=== PATIENT | male | born 1980 | race Two or more races ===

== ENCOUNTER → 2016-10-26 | Outpatient (CLI) | payer OTHER ==
[2016-10-26 12:45] LABS: CHLORIDE,CL 106 mmol/L (98-110); SODIUM,NA 141 mmol/L (136-146)
== END ==
LOC: MW.LAB 12:09 → MW.CHFP 12:09
PROVIDERS: ATTEND Student in an Organized Health Care Education/Training Program
DX: B35.1 Tinea unguium (principal)
CPT/HCPCS: 36415; 80053

== ENCOUNTER 2020-06-10 13:34 | Emergency (ER) | payer BC ==
[2020-06-10] MEDS ORDERED: Sodium Chloride 0.9% 2.5 ML Syringe FLUSH PRN (13:49)
[2020-06-10] MEDS ORDERED: Sodium Chloride 0.9% 10 ML Syringe FLUSH PRN (13:49)
--- NOTE | 2020-06-10 14:01 | EDM.PDOC ---
ED HPI GENERAL MEDICAL PROBLEM - General Chief Complaint: Chest Pain Stated Complaint: CHEST PAIN Time Seen by Provider: 06/10/20 13:38 - History of Present Illness INITIAL COMMENTS - FREE TEXT/NARRATIVE: 40-year-old male with no past medical history presenting with now improved left- sided chest pain. Patient reports that he initially experienced the chest pain yesterday he bent down to pick something up and had 2 very quick stabs of left- sided chest pain went away immediately and there were no associated symptoms. He remained asymptomatic until earlier today when he developed a constant nonradiating left chest ache that at its worst was 7 out of 10 and is currently 1 out of 10. His breathing did change during this but he had no shortness of breath no lightheadedness or dizziness no nausea no vomiting no abdominal pain. He has had no recent travel no lower extremity pain or swelling. He is a non- smoker he used to drink relatively heavily 1-2 times a month but gave up alcohol a couple weeks ago. No illicit drugs. No family history of coronary artery disease no family history of diabetes. Over the course of the day today no clear exacerbating or alleviating factors radiation or other associated symptoms. left chest Pain Score (Numeric/FACES): 2 - Related Data Allergies Allergy/AdvReac Type Severity Reaction Status Date / Time Penicillins Allergy Hives Verified 06/10/20 13:46 Home Meds: Home Meds . [No Known Home Meds] 06/10/20 [History] Past Medical History - Past Health History Medical/Surgical History: Denies Medical/Surgical History - Past Surgical History Musculoskeletal Surgical History: Reports: Other (See Below) Other Musculoskeletal Surgeries/Procedures:: Achilles Rupture Social & Family History - Family History Family Medical History: Noncontributory - Tobacco Use Tobacco Use Status *Q: Never Tobacco User - Recreational Drug Use Recreational Drug Use: No ED ROS GENERAL - Review of Systems Review Of Systems: See Below Free Text/Narrative/Comment: General: No fever. Skin: No rash. Eyes: No vision problems. ENT: No sore throat. Neck: No neck stiffness. Respiratory: No shortness of breath. Cardiac: Per HPI Gastrointestinal: No nausea, vomiting or abdominal pain. Urinary: No dysuria. Musculoskeletal: No myalgias/arthralgias. Neurologic: No headache. ED EXAM, GENERAL - Physical Exam Exam: See Below Free Text/Narrative:: General Appearance: No acute distress, appears comfortable Skin: No rash HEENT: Normocephalic/atraumatic, sclera anicteric, mucous membranes moist Neck: Normal range of motion Chest and Lungs: Bilateral breath sounds, clear to auscultation, no chest wall tenderness or rash Cardiovascular: Regular rate and rhythm, no murmur Abdomen: Soft, non-tender Back: Normal Musculoskeletal: No edema or tenderness Neurologic: Awake, alert, no obvious deficits, moving all extremities Psychiatric: Appropriate, cooperative #1 Interpretation EKG Date: 06/10/20 Time: 13:59 EKG Interpretation Comments: Normal sinus rhythm with a rate of 78 normal axis and intervals no acute ischemia Course - Vital Signs Last Recorded V/S: Last Vital Signs Temp 96.6 F L 06/10/20 13:43 Pulse 79 06/10/20 13:43 Resp 16 06/10/20 13:43 BP 140/85 06/10/20 13:43 Pulse Ox 99 06/10/20 13:43 - Orders/Labs/Meds Orders: Active Orders 24 hr Category Date Time Status Potassium Chloride [Klor-Con M20] Med 06/10/20 15:25 Once 40 meq PO ONETIME ONE Sodium Chloride 0.9% [Saline Flush] Med 06/10/20 13:49 Active 10 ml FLUSH ASDIRECTED PRN Sodium Chloride 0.9% [Saline Flush] Med 06/10/20 13:49 Active 2.5 ml FLUSH ASDIRECTED PRN Saline Lock Insert [OM.PC] Stat Oth 06/10/20 13:49 Ordered Medication Orders Sodium Chloride (Saline Flush) 10 ml FLUSH ASDIRECTED PRN PRN Reason: Keep Vein Open Last Admin: 06/10/20 14:17 Dose: 10 ml Documented by: YUE Sodium Chloride (Saline Flush) 2.5 ml FLUSH ASDIRECTED PRN PRN Reason: Keep Vein Open Last Admin: 06/10/20 14:17 Dose: 2.5 ml Documented by: YUE Labs: Laboratory Tests 06/10/20 06/10/20 06/10/20 Range/Units 14:05 14:05 14:05 WBC 5.08 (4.0-11.0) K/uL RBC 5.11 (4.50-5.90) M/uL Hgb 14.9 (13.0-17.0) g/dL Hct 44.2 (38.0-50.0) % MCV 86.5 (80.0-98.0) fL MCH 29.2 (27.0-32.0) pg MCHC 33.7 (31.0-37.0) g/dL RDW Std Deviation 39.7 (28.0-62.0) fl RDW Coeff of [place] 12 (11.0-15.0) % Plt Count 212 (150-400) K/uL MPV 10.70 (7.40-12.00) fL Neut % (Auto) 40.1 L (48.0-80.0) % Lymph % (Auto) 49.6 H (16.0-40.0) % [place] % (Auto) 7.7 (0.0-15.0) % Eos % (Auto) 2.0 (0.0-7.0) % Baso % (Auto) 0.6 (0.0-1.5) % Neut # (Auto) 2.0 (1.4-5.7) K/uL Lymph # (Auto) 2.5 H (0.6-2.4) K/uL [place] # (Auto) 0.4 (0.0-0.8) K/uL Eos # (Auto) 0.1 (0.0-0.7) K/uL Baso # (Auto) 0.0 (0.0-0.1) K/uL Nucleated RBC % 0.0 /100WBC Nucleated RBCs # 0 K/uL D-Dimer, Quantitative < 0.19 (0.0-0.50) mg/L FEU Sodium 139 (136-148) mmol/L Potassium 3.2 L (3.5-5.1) mmol/L Chloride 104 (98-107) mmol/L Carbon Dioxide 29.1 (21.0-32.0) mmol/L BUN 9 (7.0-18.0) mg/dL Creatinine 1.3 (0.8-1.3) mg/dL Est Cr Clr Drug Dosing 78.77 mL/min Estimated GFR (MDRD) > 60.0 ml/min Glucose 112 H (74-106) mg/dL Calcium 8.5 (8.5-10.1) mg/dL Total Bilirubin 0.5 (0.2-1.0) mg/dL AST 20 (15-37) IU/L ALT 28 (14-63) IU/L Alkaline Phosphatase 63 (46-116) U/L Troponin I < 0.050 (0.000-0.056) ng/mL Total Protein 6.9 (6.4-8.2) g/dL Albumin 4.1 (3.4-5.0) g/dL Globulin 2.8 (2.6-4.0) g/dL Albumin/Globulin Ratio 1.5 (0.9-1.6) Meds: Medications Generic Name Dose Route Start Last Admin Trade Name Freq PRN Reason Stop Dose Admin Sodium Chloride 10 ml 06/10/20 13:49 06/10/20 14:17 Saline Flush FLUSH 10 ml ASDIRECTED PRN Administration Keep Vein Open Sodium Chloride 2.5 ml 06/10/20 13:49 06/10/20 14:17 Saline Flush FLUSH 2.5 ml ASDIRECTED PRN Administration Keep Vein Open Departure - Departure Time of Disposition: 15:14 Disposition: Home, Self-Care 01 Condition: Good Clinical Impression: Hypokalemia, Chest pain - Discharge Information *PRESCRIPTION DRUG MONITORING PROGRAM REVIEWED*: Not Applicable *COPY OF PRESCRIPTION DRUG MONITORING REPORT IN PATIENT LASHAY: Not Applicable Instructions: Hypokalemia, Nonspecific Chest Pain, Adult Referrals: Mely Mchugh NP [Primary Care Provider] - Forms: ED Department Discharge Additional Instructions: It is important that your primary care doctor recheck your potassium in a week or so to make sure that it is returned to normal. Please also follow-up with her regarding her chest pain. Your labs today showed a normal heart enzyme normal chest x-ray and otherwise normal blood work with the exception of your potassium. Your kidney function is normal so your low potassium is like due to a mild nutritional deficit. You do not need to chronic potassium supplementation at this point but it is important your primary care doctor recheck your blood work in the next several days to make sure that it is normal. The following information is given to patients seen in the emergency department who are being discharged to home. This information is to outline your options for follow-up care. We provide all patients seen in our emergency department with a follow-up referral. The need for follow-up, as well as the timing and circumstances, are variable depending upon the specifics of your emergency department visit. If you don't have a primary care physician on staff, we will provide you with a referral. We always advise you to contact your personal physician following an emergency department visit to inform them of the circumstance of the visit and for follow-up with them and/or the need for any referrals to a consulting specialist. The emergency department will also refer you to a specialist when appropriate. This referral assures that you have the opportunity for follow-up care with a specialist. All of these measure are taken in an effort to provide you with optimal care, which includes your follow-up. Under all circumstances we always encourage you to contact your private elvin sician who remains a resource for coordinating your care. When calling for follow-up care, please make the office aware that this follow-up is from your recent emergency room visit. If for any reason you are refused follow-up, please contact the [facility] Emergency Department at and asked to speak to the emergency department charge nurse. Sepsis Event Note (ED) - Evaluation Sepsis Screening Result: No Definite Risk - Focused Exam Vital Signs: Vital Signs Temp Pulse Resp BP Pulse Ox 06/10/20 13:43 96.6 F L 79 16 140/85 99 - My Orders Last 24 Hours: My Active Orders 06/10/20 13:49 Sodium Chloride 0.9% [Saline Flush] 10 ml FLUSH ASDIRECTED PRN Sodium Chloride 0.9% [Saline Flush] 2.5 ml FLUSH ASDIRECTED PRN Saline Lock Insert [OM.PC] Stat 06/10/20 15:25 Potassium Chloride [Klor-Con M20] 40 meq PO ONETIME ONE - Assessment/Plan Last 24 Hours: My Active Orders 06/10/20 13:49 Sodium Chloride 0.9% [Saline Flush] 10 ml FLUSH ASDIRECTED PRN Sodium Chloride 0.9% [Saline Flush] 2.5 ml FLUSH ASDIRECTED PRN Saline Lock Insert [OM.PC] Stat 06/10/20 15:25 Potassium Chloride [Klor-Con M20] 40 meq PO ONETIME ONE Assessment:: 40-year-old male presenting with chest pain. He is low risk for ACS. His EKG is normal. Single troponin will be sufficient. Multiple other etiologies considered including pneumothorax pneumonia pericarditis myocarditis. No findings that would suggest these chest x-ray pending regarding pneumothorax and pneumonia. Aortic dissection considered but nothing about his presentation suggest this and I would not further evaluate unless his mediastinal or abnormal on chest x-ray. PE considered felt unlikely but D-dimer pending. Right now he has no symptoms if evaluation is reassuring he could go home and follow-up with his primary care doctor. 1515: Labs demonstrate a mild hypokalemia. But they are otherwise unremarkable. Will provide a single dose of potassium here but patient states that normally he eats a banana daily and did not today he has no prior history of similar symptoms he has a primary care provider with whom he can follow-up for repeat potassium check. Patient is asymptomatic at this time given his low risk heart score he is felt safe for discharge his heart score was 0.
[2020-06-10 14:34] LABS: BLOOD UREA NITROGEN,BUN 9 mg/dL (7.0-18.0); CARBON DIOXIDE,CO2 29.1 mmol/L (21.0-32.0); CHLORIDE,CL 104 mmol/L (98-107); GLUCOSE RANDOM 112 mg/dL (74-106); POTASSIUM,K 3.2 mmol/L (3.5-5.1); SODIUM,NA 139 mmol/L (136-148)
--- NOTE | 2020-06-10 15:14 | CR ---
Indication: Left-sided chest pain. Technique: Chest 2 views Comparison: 04/02/2013. Findings: Cardiomediastinal silhouette is unremarkable. No focal lung consolidation, pleural effusion or pneumothorax. Bones are unremarkable. Impression: No acute cardiopulmonary abnormality. Dictated by Monroe Chacon MD @ Jun 10 2020 3:11PM Signed by Dr. Monroe Chacon @ Jun 10 2020 3:12PM
[2020-06-10] MEDS ORDERED: Potassium Chloride 20 MEQ Tab.ER PO ONE (15:25)
[2020-06-10 15:40] VITALS: BP 113/62; PULSE 70
== END 2020-06-10 15:48 | disposition home or self-care (01) ==
LOC: MW.ED 13:34
DX: R07.9 Chest pain, unspecified (principal); E87.6 Hypokalemia; Z88.0 Allergy status to penicillin
CPT/HCPCS: 36415; 71046; 80053; 84484; 85025; 85379; 93005; 99285; A9270; 93010; 99283